=== PATIENT | female | born 1940 | race Caucasian/White ===

== ENCOUNTER → 2017-08-21 09:35 | Outpatient (CLI) | payer MEDICARE | END | disposition home or self-care (01) | LOC: D.US 08-18 08:00 | DX: I71.4 Abdominal aortic aneurysm, without rupture (principal) ==

== ENCOUNTER → 2018-10-09 11:07 | Outpatient (CLI) | payer MEDICARE | END | disposition home or self-care (01) | LOC: D.US 09:00 | DX: I71.4 Abdominal aortic aneurysm, without rupture (principal) ==

== ENCOUNTER → 2018-11-12 14:47 | Outpatient (CLI) | payer MEDICARE | END | disposition home or self-care (01) | LOC: D.US 10-15 13:30 | DX: I73.9 Peripheral vascular disease, unspecified (principal); M79.605 Pain in left leg; M79.604 Pain in right leg ==

== ENCOUNTER → 2019-01-09 13:23 | Outpatient (CLI) | payer MEDICARE | END | disposition home or self-care (01) | LOC: D.CT 12-31 12:00 | DX: I71.4 Abdominal aortic aneurysm, without rupture (principal); I73.9 Peripheral vascular disease, unspecified ==